=== PATIENT | female | born 1995 | race Caucasian/White ===

== ENCOUNTER 2021-12-02 13:07 | Emergency (ER) | payer SELFPAY ==
[~2021-12-02] VITALS: Ht 167.6 cm; Wt 58.1 kg
--- NOTE | 2021-12-02 13:11 | NUR ---
PT AMBULATED TO BED 02.
[2021-12-02 13:14] VITALS: BP 110/78
--- NOTE | 2021-12-02 13:17 | NUR ---
26/F WALKED IN C/O SWOLLEN TONSILS ONSET 3 DAYS. STATES SUBJECTIVE FEVER ONSET 2 DAYS AGO. PT ALSO STATES RASH ON LOWER BACK AND RIGHT BUTTOCK ONSET 20 DAYS AGO AFTER A TRIP BACK FROM [place]. DENIES DISCHARGE FROM RASH. AAO4, AMBULATORY, AFEBRILE AT BEDSIDE
[2021-12-02 13:19] VITALS: BP 110/78
[2021-12-02] MEDS ORDERED: PROM118S5 PO (14:25)
[2021-12-02] MEDS ORDERED: IBUP-2213 PO (14:25)
[2021-12-02] MEDS ORDERED: BENZ-300 PO (14:25)
--- NOTE | 2021-12-02 14:31 | NUR ---
Patient discharged with v/s stable. Written and verbal after care instructions given and explained. Patient verbalized understanding. Ambulatory with steady gait. All questions addressed prior to discharge. Advised to follow up with PMD.
== END 2021-12-02 14:30 | disposition home or self-care (01) ==
LOC: MED 13:07
DX: J06.9 Acute upper respiratory infection, unspecified (principal); R21 Rash and other nonspecific skin eruption
CPT/HCPCS: 87081; 99281